=== PATIENT | male | born 2000 | race Caucasian/White ===

== ENCOUNTER 2022-03-31 10:10 | Emergency (ER) | payer MEDICAID, SELFPAY ==
[2022-03-31 10:12] VITALS: BP 122/78; PULSE 69; RESP 16; TEMP 35.9; O2SAT 98; BMI 21.2
--- NOTE | 2022-03-31 10:29 | CT_ITS ---
WS: [id number] CT HEAD TECHNIQUE: Noncontrast CT of the head obtained from the skullbase to the vertex. CLINICAL INFORMATION: [place]/injury wk ago; worse with bending/at night COMPARISON: None. DLP: 799.[address] scans at [facility] use at least one of these dose optimization techniques: automated e xposure control; mA and/or kV adjustment per patient size (includes targeted exams where dose is matc hed to clinical indication); or iterative reconstruction. FINDINGS: No evidence of intracranial hemorrhage or mass effect. Ventricular system and basal cisterns are miranda nt. No extra-axial fluid collections. No evidence of mass or mass effect. Normal up-white different iation. Paranasal sinuses and mastoid air cells are well aerated. .Normal visualized soft tissues. CT/CT head wo con* [id number] IMPRESSION: 1. No evidence of intracranial hemorrhage or mass effect. 2. No acute intracranial findings.
--- NOTE | 2022-03-31 10:46 | ED_ITS ---
HPI - Headache General: Chief Complaint: Headache Stated Complaint: head injury/headaches Time Seen by Provider: 03/31/22 10:12 Source: patient Mode of arrival: ambulatory Limitations: no limitations History of Present Illness: Patient is a 22-year-old male who presents to ED today for complaint of intermittent headaches following minor head trauma approximately a week ago. Patient states he struck his head on a door frame approximately a week ago. He states since that time he has continued to have intermittent headaches that he states are usually worse at night and worse with bending over. He states he does have long periods where he is symptom free. He denies visual changes, trouble ambulating/gait disturbance, or nausea/vomiting. No fevers/neck pain. MD elicited complaint: headache Onset (ago): day(s) Exacerbating factors: other (worse at night and bending over) Associated symptoms: Deny chest pain, confusion, fever(s), malaise, nausea, rash or vomiting Review of Systems Const: Denies: fever(s), chills, body aches, change in appetite, fatigue or malaise Eyes: Denies: change in vision, blurry vision, blind spots, photophobia, floaters or seeing flashes Card: Denies: chest pain Resp: Denies: dyspnea GI: Denies: nausea or vomiting Musc: Denies: neck pain Skin/Breast: Denies: rash Neuro: Reports: headache(s); Denies: numbness in extremities, weakness in extremities, sensory changes, lack of coordination, difficulty walking, frequent falls, dizziness, confusion, behavioral changes, Slurred speech present or difficulty communicating thoughts Physical Exam Const: COMMON NORMALS: no acute distress, average body habitus, patient oriented x3, no limitations, healthy appearing, alert and well nourished GENERAL APPEARANCE: cooperative ORIENTATION/CONSCIOUSNESS: Yes awake, Yes oriented to person, Yes oriented to place and Yes oriented to time HENMT: COMMON NORMALS: normocephalic and atraumatic HEAD & SCALP: normal to inspection, normocephalic and atraumatic Eye: GENERAL EYE: appearance normal, both eyes and all related structures Neck/C-Spine: COMMON NORMALS: full ROM and no meningeal signs Neuro: JILLIAN COMA SCALE: document GCS findings [place] coma scale eye opening: Spontaneous [place] coma scale verbal response: Orientated [place] coma scale motor response: Obey commands Jillian coma scale total score: 15 COMMON NORMALS: patient oriented x3, CN's II-XII intact bilaterally, moves all extremities, no focal motor deficits, no sensory deficits noted and gait normal SENSORIUM/ORIENTATION: Yes alert, Yes oriented to person, Yes oriented to place and Yes oriented to time MENINGEAL SIGNS: Yes no meningeal signs Skin: COMMON NORMALS: no rashes or lesions noted GENERAL SKIN EXAM: no rashes or lesions noted Course Vital Signs: Vital signs: Vital Signs Temperature 96.7 F L 03/31/22 10:12 Pulse Rate 69 03/31/22 10:12 Respiratory Rate 16 03/31/22 10:12 Blood Pressure 122/78 03/31/22 10:12 Pulse Oximetry 98 03/31/22 10:12 MDM - Headache Medical Decision Making CT negative. Recommend follow up with PCP in one week if symptoms are persisting and not improving. Lab Data Radiology Impressions Head CT 03/31/22 10:29 IMPRESSION: 1. No evidence of intracranial hemorrhage or mass effect. 2. No acute intracranial findings. 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
== END 2022-03-31 11:26 | disposition home or self-care (01) ==
PROVIDERS: Emergency Provider Physician Assistant
DX: S09.90XA Unspecified injury of head, initial encounter (principal); W22.09XA Striking against other stationary object, initial encounter
CPT/HCPCS: 70450; 99283

== ENCOUNTER 2022-04-05 02:13 | Emergency (ER) | payer MEDICAID, SELFPAY ==
[2022-04-05 02:29] VITALS: BP 117/76; PULSE 85; RESP 18; TEMP 37.2; O2SAT 97; BMI 21.4
--- NOTE | 2022-04-05 02:38 | CTR_ITS ---
PROCEDURE INFORMATION: Exam: CT Head Without Contrast Exam date and time: 04/05/2022 3:25 AM Age: 22 years old Clinical indication: Pain; Headache; Additional info: [place] TECHNIQUE: Imaging protocol: Computed tomography of the head without contrast. Radiation optimization: All CT scans at this facility use at least one of these dose optimization techniques: automated exposure control; mA and/or kV adjustment per patient size (includes targeted exams where dose is matched to clinical indication); or iterative reconstruction. COMPARISON: CT head wo con* [id number] 03/31/2022 10:51 AM RADIATION DOSE METRICS: Total DLP (mGy-cm): 837.49 FINDINGS: Brain: No acute hemorrhage identified. No large territorial areas of hypoattenuation concerning for ischemic infarct identified. No intracranial mass effect. Cerebral ventricles: The ventricles are within normal limits. Paranasal sinuses: The visualized sinuses are unremarkable. Mastoid air cells: The visualized mastoid air cells are well aerated. Bones/joints: The osseous structures are intact. Soft tissues: Unremarkable. CT/CT head wo con* [id number] IMPRESSION: No acute intracranial abnormality.
--- NOTE | 2022-04-05 02:41 | ED_ITS ---
HPI - Headache General: Chief Complaint: Headache Stated Complaint: headache, fever Time Seen by Provider: 04/05/22 02:16 Source: patient Mode of arrival: ambulatory Limitations: no limitations History of Present Illness: 22-year-old male who states that he had hit his head March 24. He states he was running in his house and his door frames were low when he hit his head hard states has been having headaches since then he was seen here on the fourth had a head CT was normal states that since then his headaches have worsened mainly frontal headaches he has had low-grade fevers he states today started having some nausea along with diarrhea denies any neck pain denies any cough Associated symptoms: Reports fever(s); Deny chest pain or rash Review of Systems Const: Reports: fever(s) Eyes: Denies: blurry vision or eye discomfort ENMT: Denies: throat pain or dental pain Card: Denies: chest pain Resp: Denies: dyspnea GI: Reports: diarrhea : Denies: dysuria Musc: Denies: neck pain or back pain Skin/Breast: Denies: rash Neuro: Reports: headache(s) Psych: Denies: depression Rogelio/Lymph: Denies: easy bruising All/Imm: Denies: urticaria PFSH ED PFSH: Medical History (Updated 04/05/22 @ 04:16 by David Dubois MD) No pertinent past medical history Social History (Updated 04/05/22 @ 02:42 by David Dubois MD) Substance/Drug Use: never Physical Exam Const: COMMON NORMALS: no acute distress, patient oriented x3 and healthy appearing HENMT: COMMON NORMALS: normocephalic and atraumatic HEAD & SCALP: normocephalic and atraumatic Eye: COMMON NORMALS: Equal, round and reactive pupils present and EOMs intact bilaterally PUPIL: Yes Equal, round and reactive pupils present Neck/C-Spine: COMMON NORMALS: full ROM and supple Chest: COMMONS NORMALS: normal inspection of the chest and normal palpation of entire chest wall Resp: COMMON NORMALS: normal respiratory effort, No retractions, No use of accessory muscles and clear to auscultation bilaterally AUSCULTATION: clear to auscultation bilaterally Cardio: COMMON NORMALS: regular rate, regular rhythm and No murmurs present (Cardio) RATE: regular rate RHYTHM: regular rhythm GI: COMMON NORMALS: Normal to inspection, nondistended, normoactive bowel sounds present, Soft to palpation, non-tender and no masses PALPATION: Yes Soft to palpation Extremity: COMMON NORMALS: normal to inspection and full ROM Neuro: COMMON NORMALS: patient oriented x3, moves all extremities and no focal motor deficits Psych: COMMON NORMALS: mental status grossly normal, Normal thought process present and cooperative THOUGHT PROCESS: Normal thought process present Skin: COMMON NORMALS: no rashes or lesions noted and no wounds GENERAL SKIN EXAM: no rashes or lesions noted Course Vital Signs: Vital signs: Vital Signs Temperature 99.0 F 04/05/22 02:29 Pulse Rate 70 04/05/22 03:52 Respiratory Rate 16 04/05/22 03:52 Blood Pressure 104/56 04/05/22 03:52 Pulse Oximetry 97 04/05/22 03:52 MDM - Headache Medical Decision Making Patient presents here with a headache that is likely tension headache could be from a concussion patient's head CT and blood work here is all normal he has no signs of subarachnoid hemorrhage or meningitis she is stable for discharge return if worsening Lab Data : 04/05/22 02:55 04/05/22 02:[address] 04/05/22 02:38 IMPRESSION: No acute intracranial abnormality. Laboratory Results WBC 8.8 10^3/uL (4.0-10.0) 04/05/22 02:55 RBC 5.04 10^6/uL (4.1-5.3) 04/05/22 02:55 Hgb 14.3 g/dL (11.7-16.6) 04/05/22 02:55 Hct 41.7 % (42.0-52.0) L 04/05/22 02:55 MCV 82.7 fl (80-94) 04/05/22 02:55 MCH 28.4 pg (28.0-34.0) 04/05/22 02:55 MCHC 34.3 g/dL (30.0-36.0) 04/05/22 02:55 RDW 13.5 % (12.1-15.1) 04/05/22 02:55 Plt Count 189 10^3/cmm (130-400) 04/05/22 02:55 MPV 9.9 fL (7.4-10.4) 04/05/22 02:55 Neut % (Auto) 73.7 % 04/05/22 02:55 Lymph % (Auto) 15.9 % 04/05/22 02:55 [place] % (Auto) 8.6 % 04/05/22 02:55 Eos % (Auto) 1.4 % 04/05/22 02:55 Baso % (Auto) 0.2 % 04/05/22 02:55 Neut # (Auto) 6.48 10^3/uL (1.8-7.7) 04/05/22 02:55 Lymph # (Auto) 1.4 10^3/uL (0.8-4.8) 04/05/22 02:55 [place] # (Auto) 0.8 10^3/uL (0.2-0.9) 04/05/22 02:55 Eos # (Auto) 0.1 10^3/uL (0.0-0.8) 04/05/22 02:55 Baso # (Auto) 0.0 10^3/uL (0.0-0.1) 04/05/22 02:55 Nucleated RBC % (auto) 0 % 04/05/22 02:55 Nucleated RBCs # 0.0 /100WBC 04/05/22 02:55 Sodium 135 mmol/L (136-145) L 04/05/22 02:55 Potassium 4.5 mmol/L (3.5-5.1) 04/05/22 02:55 Chloride 101 mmol/L (98-107) 04/05/22 02:55 Carbon Dioxide 22 mmol/L (22-29) 04/05/22 02:55 Anion Gap 16.5 (5-19) 04/05/22 02:55 BUN 15 mg/dL (6-20) 04/05/22 02:55 Creatinine 0.8 mg/dL (0.7-1.2) 04/05/22 02:55 GFR Calculation 122.0 mL/min (90-130) 04/05/22 02:55 Glucose 97 mg/dL (65-115) 04/05/22 02:55 Calculated Osmolality 281 mOsm/kg (285-295) L 04/05/22 02:55 Calcium 9.5 mg/dL (8.5-10.5) 04/05/22 02:55 Total Bilirubin 1.1 mg/dL (0.15-1.2) 04/05/22 02:55 AST 27 U/L (0-40) 04/05/22 02:55 ALT 17 U/L (0-41) 04/05/22 02:55 Alkaline Phosphatase 72 IU/L (40-130) 04/05/22 02:55 Total Protein 7.7 g/dL (6.6-8.7) 04/05/22 02:55 Albumin 4.6 g/dL (3.5-5.2) 04/05/22 02:55 Globulin 3.1 g/dL (1.3-4.6) 04/05/22 02:55 Discharge Plan Discharge Patient Disposition: Home Clinical Impression: Headache, Minor closed head injury Prescriptions: New Naprosyn 500 mg tablet 500 mg PO BID PRN (Reason: pain) Qty: 20 0RF Discharge Orders: Discharge ED (Routine); Ordered 04/05/22 Ordered By: David Dubois Discharge Diet: Advance as tolerated Discharge Activity: Resume usual activity Patient Instructions: Acute Headache (ED) Coding Level of Care Code 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
[2022-04-05 03:08] LABS: Basophils % 0.2 %; Eosinophils # 0.1 10^3/uL (0.0-0.8); Eosinophils % 1.4 %; Hematocrit 41.7 % (42.0-52.0); Hemoglobin 14.3 g/dL (11.7-16.6); Lymphocytes # 1.4 10^3/uL (0.8-4.8); Lymphocytes % 15.9 %; Mean Corpuscular HGB Conc 34.3 g/dL (30.0-36.0); Mean Corpuscular Hemoglobin 28.4 pg (28.0-34.0); Mean Corpuscular Volume 82.7 fl (80-94); Mean Platelet Volume 9.9 fL (7.4-10.4); Monocytes # 0.8 10^3/uL (0.2-0.9); Monocytes % 8.6 %; Neutrophils # 6.48 10^3/uL (1.8-7.7); Neutrophils % 73.7 %; Nucleated Red Blood Cells % 0 %; Platelet Count 189 10^3/cmm (130-400); Red Blood Count 5.04 10^6/uL (4.1-5.3); Red Cell Distribution Width 13.5 % (12.1-15.1); White Blood Count 8.8 10^3/uL (4.0-10.0)
[2022-04-05 03:29] LABS: Alanine Aminotransferase 17 U/L (0-41); Albumin Level 4.6 g/dL (3.5-5.2); Alkaline Phosphatase 72 IU/L (40-130); Blood Urea Nitrogen 15 mg/dL (6-20); Calcium 9.5 mg/dL (8.5-10.5); Carbon Dioxide 22 mmol/L (22-29); Chloride 101 mmol/L (98-107); Globulin 3.1 g/dL (1.3-4.6); Glucose 97 mg/dL (65-115); Osmolality Calculated 281 mOsm/kg (285-295); Sodium 135 mmol/L (136-145); Total Bilirubin 1.1 mg/dL (0.15-1.2); Total Protein 7.7 g/dL (6.6-8.7)
[2022-04-05 03:30] LABS: Anion Gap 16.5 (5-19); Aspartate Amino Transferase 27 U/L (0-40); Potassium 4.5 mmol/L (3.5-5.1)
[2022-04-05 03:52] VITALS: BP 104/56; PULSE 70; RESP 16; O2SAT 97
[2022-04-05 04:50] VITALS: BP 106/62; PULSE 77; RESP 16; O2SAT 96
--- NOTE | 2022-05-04 15:56 | DCPLANNER ---
late entry - membership manager had message to speak with patient about getting established with a primary care physician. client development manager was unable to speak with patient at this time or leave a voicemail for patient.
== END 2022-04-05 04:51 | disposition home or self-care (01) ==
PROVIDERS: Emergency Provider Emergency Medicine
DX: R51.9 Headache, unspecified (principal); S09.90XA Unspecified injury of head, initial encounter; W22.8XXA Striking against or struck by other objects, initial encounter
CPT/HCPCS: 70450; 80053; 85025; 99283